=== PATIENT | male | born 1945 | race Caucasian/White ===

== ENCOUNTER 2016-03-27 11:51 | Inpatient (IN) | payer OTHER, BC ==
--- NOTE | 2016-03-27 12:10 | EDPHY ---
H & P Time Seen by Provider: 03/27/16 12:02 HPI/ROS: CHIEF COMPLAINT: Shortness of breath. HISTORY OF PRESENT ILLNESS: The patient is a 70-year-old male with a history of pacemaker and cardiomyopathy who presents from [facility]. He has had shortness of breath for a week and was referred to [facility] by his PCP for an Echocardiogram. During his echo, patient noted to be very tachypneic and complained of shortness of breath. Dr Harvey saw him briefly and verbally reports to me that his echo was not significantly changed from prior studies. Due to patients significant SOB, he was referred to the ED. Patient reports the shortness of breath is worse at night. No chest pain. No palpitations. No peripheral edema. No fever, chills, palpitations, vomiting, diarrhea, urinary complaints, headache, lightheadedness. No cough. He wears 2L oxygen normally at night. His has had him on this constantly over the past week. History limited secondary to patient's clinical condition. Patient very anxious. 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 REVIEW OF SYSTEMS: Limited secondary to patient's clinical condition. Reports a fall 1 week ago with bruising on his right anterior chest and right lateral chest wall. PAST MEDICAL HISTORY: CVA, cardiomyopathy, gout, pacemaker, chronic atrial fibrillation, hypertension. SOCIAL HISTORY: Former smoker. VITAL SIGNS: Reviewed by me, BP 187/169. GENERAL: Very anxious. Well-developed, well-nourished. HEENT: Atraumatic. Eyes: No icterus, no injection. Mouth: moist mucous membranes. No erythema or lesions. Neck: supple with no adenopathy. LUNGS: Tachypneic. Clear to auscultation bilaterally, no wheezes, rhonchi or rales. CARDIAC: Regular rate and rhythm, no rubs, murmurs or gallops. Pacemaker present in left anterior chest wall. ABDOMEN: Soft, nontender, nondistended, bowel sounds normal. BACK: No CVA tenderness. EXTREMITIES: Trace edema in bilateral lower legs. No trauma. Range of motion is normal throughout. NEURO: Alert and oriented, grossly nonfocal. SKIN: Bruises on anterior right upper chest and right chest wall. Warm and dry , no rash. PSYCHIATRIC: Normal mentation, no agitation. Portions of this note were transcribed by a associate medical director. I personally performed a history, physical exam, medical decision making, and confirmed accuracy of information the transcribed note. Smoking Status: Former smoker Constitutional: Initial Vital Signs Temperature (C) 36.3 C 03/27/16 11:58 Heart Rate 85 03/27/16 11:58 Respiratory Rate 18 03/27/16 11:58 Blood Pressure 170/110 H 03/27/16 11:58 O2 Sat (%) 94 03/27/16 11:58 O2 Delivery Mode Nasal Cannula O2 (L/minute) 2 Allergies/Adverse Reactions: No Known Allergies Allergy (Verified 03/27/16 11:55) Home Medications: Medication Instructions Recorded Allopurinol [Allopurinol 300 MG 300 mg PO HS 03/27/16 (RX)] Armodafinil [Nuvigil] 200 mg PO DAILY 03/27/16 Aspirin [Aspirin 81mg (*)] 81 mg PO HS 03/27/16 Cholecalciferol Vit D3 [Vitamin D3 1,000 units PO DAILY 03/27/16 (*)] Escitalopram Oxalate [Lexapro] 10 mg PO DAILY 03/27/16 Lovastatin 20 mg PO HS 03/27/16 Metoprolol Tartrate [Lopressor 50 75 mg PO BID 03/27/16 mg (*)] Nitroglycerin [Nitrostat 0.4 mg 0.4 mg SL Q5M PRN 03/27/16 (*)] amLODIPine BESYLATE [Norvasc 2.5 5 mg PO HS 03/27/16 mg (*)] Medical Decision Making - Diagnostics EKG Interpretation: 12-LEAD EKG: Please see the full report in Trace Master. My interpretation: Afib/flutter and ventricular-paced rhythm. Imaging: X-ray chest was obtained. I viewed the images myself on the PACS system. My interpretation of the images is: cardiomegaly. The radiologist interpretation is pending at this time. I discussed the x-ray findings with the patient. ED Course/Re-evaluation: EKG ordered. An IV was established and labs ordered. Chest x-ray ordered. WBC elevated at 13.65. Troponin elevated at 0.036. BNP elevated at 2340. No prior BNP to compare. No prior troponin levels. No history of CAD. 1309: Consulted with yehuda Johnsist. Will admit to PCU. Small dose of lasix given; patient may actually be dehydrated given elevated H and H, but could also be from noctural hypoxia. Differential Diagnosis: Differential diagnosis for the patient's shortness of breath was considered including but not limited to pulmonary infectious processes, COPD exacerbation, pulmonary emboli, pulmonary edema, congestive heart failure, and cardiac causes. Consult/Admit Bed Type: Dr Ortiz, PCU - Data Points Laboratory Results: Laboratory Results 03/27/16 12:20 03/27/16 12:20 03/27/16 03/27/16 03/27/16 12:20 12:20 12:20 WBC 13.65 10^3/uL H 10^3/uL (3.80-9.50) RBC 6.02 10^6/uL 10^6/uL (4.40-6.38) Hgb 17.7 g/dL H g/dL (13.7-17.5) Hct 52.8 % H % (40.0-51.0) MCV 87.7 fL fL (81.5-99.8) MCH 29.4 pg pg (27.9-34.1) MCHC 33.5 g/dL g/dL (32.4-36.7) RDW 16.9 % H % (11.5-15.2) Plt Count 203 10^3/uL 10^3/uL (150-400) MPV 12.1 fL H fL (8.7-11.7) Neut % (Auto) 72.6 % % (39.3-74.2) Lymph % (Auto) 14.5 % L % (15.0-45.0) Graves % (Auto) 9.2 % % (4.5-13.0) Eos % (Auto) 2.2 % % (0.6-7.6) Baso % (Auto) 0.8 % % (0.3-1.7) Nucleat RBC Rel Count 0.0 % % (0.0-0.2) Absolute Neuts (auto) 9.91 10^3/uL H 10^3/uL (1.70-6.50) Absolute Lymphs (auto) 1.98 10^3/uL 10^3/uL (1.00-3.00) Absolute Monos (auto) 1.26 10^3/uL H 10^3/uL (0.30-0.80) Absolute Eos (auto) 0.30 10^3/uL 10^3/uL (0.03-0.40) Absolute Basos (auto) 0.11 10^3/uL H 10^3/uL (0.02-0.10) Absolute Nucleated RBC 0.00 10^3/uL 10^3/uL (0-0.01) Immature Gran % 0.7 % % (0.0-1.1) Immature Gran # 0.09 10^3/uL 10^3/uL (0.00-0.10) D-Dimer 0.49 ug/mLFEU ug/mLFEU (0.00-0.50) Sodium 144 mEq/L mEq/L (134-144) Potassium 4.8 mEq/L mEq/L (3.5-5.2) Chloride 105 mEq/L mEq/L (97-110) Carbon Dioxide 26 mEq/l mEq/l (22-31) Anion Gap 13 mEq/L mEq/L (8-16) BUN 25 mg/dL H mg/dL (7-23) Creatinine 1.1 mg/dL mg/dL (0.7-1.3) Estimated GFR > 60 Glucose 84 mg/dL mg/dL (70-100) Calcium 9.7 mg/dL mg/dL (8.5-10.4) Troponin I 0.036 ng/mL H ng/mL (0-0.034) NT-Pro-B Natriuret Pep 2340 pg/mL H pg/mL (0-125) Lipase 138.0 IU/L IU/L (23-300) Medications Given: Discontinued Medications Aspirin (Aspirin) 324 mg PO EDNOW ONE Stop: 03/27/16 13:52 Last Admin: 03/27/16 14:05 Dose: 324 mg Furosemide (Lasix Injection) 20 mg IVP EDNOW ONE Stop: 03/27/16 13:05 Last Admin: 03/27/16 13:06 Dose: 20 mg Sodium Chloride (Ns) 500 mls @ 0 mls/hr IV ONCE ONE PRN Reason: As Directed Stop: 03/27/16 13:07 Last Admin: 03/27/16 13:47 Dose: 500 mls Departure - Departure Disposition: [facility] Clinical Impression: Shortness of breath, Elevated troponin, Elevated brain natriuretic peptide (BNP ) level Condition: Fair Report Scribed for: Olinda Escalante Report Scribed by: Clarence Mckeon Date of Report: 03/27/16 Time of Report: 12:10
--- NOTE | 2016-03-27 12:12 | CPEKG ---
Heart Rate: 73 RR Interval: 822 QRSD Interval: 182 QT Interval: 484 QTC Interval: 534 QRS [place]: -79 T Wave [place]: 107 EKG Severity - ABNORMAL ECG - EKG Impression: AFIB/FLUTTER AND VENTRICULAR-PACED RHYTHM Electronically Signed By: Olinda Escalante 27-Mar-2016 21:54:02
[2016-03-27 12:27] LABS: % IMMATURE GRANULYOCYTES 0.7 % (0.0-1.1); ABSOLUTE IMMATURE GRANULOCYTES 0.09 10^3/uL (0.00-0.10); ADD DIFF? NO; ADD MORPH? NO; ADD SCAN? NO; ATYPICAL LYMPHOCYTE FLAG 0 (0-99); FRAGMENT RBC FLAG 0 (0-99); HEMATOCRIT 52.8 % (40.0-51.0); HEMOGLOBIN 17.7 g/dL (13.7-17.5); LEFT SHIFT FLG 0 (0-99); LIPEMIA HEMOLYSIS FLAG 80 (0-99); MEAN CELL HEMOGLOBIN 29.4 pg (27.9-34.1); MEAN CELL HEMOGLOBIN CONCENTR. 33.5 g/dL (32.4-36.7); MEAN CELL VOLUME 87.7 fL (81.5-99.8); MEAN PLATELET VOLUME 12.1 fL (8.7-11.7); PLATELET CLUMPS FLAG 0 (0-99); PLATELET COUNT 203 10^3/uL (150-400); RED BLOOD CELL COUNT 6.02 10^6/uL (4.40-6.38); RED CELL DISTRIBUTION WIDTH 16.9 % (11.5-15.2)
[2016-03-27 12:50] LABS: ANION GAP 13 mEq/L (8-16); CALCIUM 9.7 mg/dL (8.5-10.4); CARBON DIOXIDE 26 mEq/l (22-31); CHLORIDE 105 mEq/L (97-110); CREATININE 1.1 mg/dL (0.7-1.3); GLOMERULAR FILTRATION RATE > 60; GLUCOSE 84 mg/dL (70-100); POTASSIUM 4.8 mEq/L (3.5-5.2); SODIUM 144 mEq/L (134-144)
[2016-03-27 13:02] LABS: TROPONIN I 0.036 ng/mL (0-0.034)
[2016-03-27] MEDS ORDERED: FUROSEMIDE 100 MG/10 ML VIAL IVP ONE (13:04)
[2016-03-27] MEDS ORDERED: NS 500 ML IV ONE (13:06)
[2016-03-27] MEDS ORDERED: ASPIRIN 81 MG CHEWABLE TAB PO ONE (13:51)
--- NOTE | 2016-03-27 14:40 | PDGENHP ---
History and Physical History and Physical: HISTORY AND PHYSICAL ADMISSION NOTE CC: Shortness of breath HISTORY: This patient with a history of cardiomyopathy has been having worsening dyspnea for approximately 10 days. This is with minimal exertion as the patient is quite debilitated from a prior stroke. He does get short of breath sitting in a chair but doing anything like putting socks on makes him much more short of breath. There is no angina or other pains, cough, upper respiratory infection symptoms, fevers, pleuritic discomfort. Neither he nor his is particularly noticed swelling in the legs. He has not had any bleeding. The patient and family do not really remember much detail about his cardiac issues. Imaging he has cardiomyopathy, but they are uncertain as to how severe or if there is a cause that is been determined. ROS: 10 system review reveals no other acute abnormalities PAST MEDICAL HISTORY: Hemorrhagic stroke with persistent deficits Cardiomyopathy Pacemaker placement for bradycardia Atrial fibrillation Hypertension Gout FAMILY MEDICAL HISTORY: No concerning family issues relevant to his current situation SOCIAL HISTORY: lives with his who is here with her at the bedside and very supportive No tobacco or alcohol MEDICATIONS: These have been reconciled by our clinical pharmacist, and include aspirin, calcium jayden, metoprolol, p.r.n. nitroglycerin. I have reviewed the list and ordered appropriate medicines from the list here PHYSICAL EXAMINATION: Vital Signs: Some mild systolic hypertension otherwise normal without fever Er Rn: Paced rhythm on my review Examination: General: alert, oriented, good mentation, relaxed Skin: warm, dry, good color, no rash HEENT: normal Neck: no mass or jvd Resps: relaxed Lungs: clear breath sounds Heart: regular, no murmur Abdomen: soft, nondistended, nontender, +BS, no mass Upper Extremities: normal Lower Extremities: no edema, warm No Bleeding or bruising Neurologic: Speech is somewhat and mumbled which is his baseline, and he has some mild memory deficit which is at baseline per his . Otherwise normal language functions, normal heavy equipment technician, no focal weakness IV site: looks normal LABORATORY DATA: Indeterminate troponin elevation 0.3 BNP elevated at 2300 hemoglobin elevated 17 which is chronic for him RADIOLOGY STUDIES: Chest x-ray done in the ER, my personal review and interpretation of images: Cardiac silhouette appears enlarged and rounded on the left and right have however this is a lordotic view it may be the angle of view that creates this appearance. There is some pulmonary vascular plethora that is mild no effusions 12 lead EKG in the ER, my personal interpretation of the tracing: Paced rhythm with a left bundle branch morphology ASSESSMENT: # acute congestive heart failure developing over the last 10 days, mechanism not yet determined, with history of cardiomyopathy per his # History of coronary artery disease, no angina recently and no acute ischemic EKG appearance # history of hypertension, currently with uncontrolled systolic pressures # for history of AFib currently with ventricular pacing PLANS: -diuresis with IV Lasix -Will get results of the echocardiogram done earlier today -repeat cardiac troponins and EKG -further evaluation and an treatment plans based on results of above -Will review with Cardiology team I have reviewed the patient's case in detail with Dr. Escalante
[2016-03-27] MEDS ORDERED: ONDANSETRON 4 MG/2 ML VIAL IVP PRN (14:48)
[2016-03-27] MEDS ORDERED: ACETAMINOPHEN 325 MG TAB PO PRN (14:48)
[2016-03-27] MEDS ORDERED: NITROGLYCERIN 0.4 MG BTL SL PRN (14:53)
[2016-03-27] MEDS ORDERED: NON-FORMULARY NEW DRUG (Lovastatin [Lovastatin] 20 MG) PO SCH (21:00)
[2016-03-27] MEDS: PRAVASTATIN SODIUM 20 MG TAB PO SCH (22:22)
[2016-03-27] MEDS: ASPIRIN 81 MG CHEWABLE TAB PO SCH (22:22)
[2016-03-27] MEDS: amLODIPine BESYLATE 5 MG TAB PO SCH (22:22)
[2016-03-27] MEDS: METOPROLOL TARTRATE 50 MG TAB PO SCH (22:22)
[2016-03-27] MEDS: ALLOPURINOL 300 MG TAB PO SCH (22:22)
[2016-03-28 05:25] LABS: ALANINE AMINOTRANSFERASE 47 IU/L (21-72); ALBUMIN 3.5 g/dL (3.5-5.0); ALKALINE PHOSPHATASE 72 IU/L (38-126); ANION GAP 9 mEq/L (8-16); ASPARTATE AMINOTRANSFERASE 32 IU/L (17-59); BILIRUBIN,TOTAL 1.9 mg/dL (0.1-1.4); CALCIUM 8.9 mg/dL (8.5-10.4); CARBON DIOXIDE 27 mEq/l (22-31); CHLORIDE 104 mEq/L (97-110); CREATININE 1.1 mg/dL (0.7-1.3); GLOMERULAR FILTRATION RATE > 60; GLUCOSE 81 mg/dL (70-100); MAGNESIUM 1.9 mg/dL (1.6-2.3); POTASSIUM 4.3 mEq/L (3.5-5.2); SODIUM 140 mEq/L (134-144); TOTAL PROTEIN 6.3 g/dL (6.3-8.2)
[2016-03-28 05:28] LABS: TROPONIN I 0.034 ng/mL (0-0.034)
[2016-03-28] MEDS: METOPROLOL TARTRATE 50 MG TAB PO SCH ×2 (08:52→21:51)
[2016-03-28] MEDS: CHOLECALCIFEROL VIT D3 1,000 UNITS TAB PO SCH (08:53)
[2016-03-28] MEDS: ESCITALOPRAM OXALATE 10 MG TAB PO SCH (08:53)
[2016-03-28] MEDS: FUROSEMIDE 40 MG/4 ML VIAL IVP SCH ×2 (08:53→15:08)
[2016-03-28] MEDS: ENOXAPARIN 40 MG/0.4 ML SYR SC SCH (08:53)
[2016-03-28] MEDS: Armodafinil [Nuvigil] 200 MG PO SCH (08:56)
[2016-03-28] MEDS ORDERED: ARMODAFINIL 200 MG PO SCH (09:00)
--- NOTE | 2016-03-28 09:14 | CPEKG ---
Heart Rate: 61 RR Interval: 984 QRSD Interval: 178 QT Interval: 524 QTC Interval: 528 QRS [place]: -78 T Wave [place]: 102 EKG Severity - ABNORMAL ECG - EKG Impression: VENTRICULAR-PACED RHYTHM Electronically Signed By: Bonifacio French 28-Mar-2016 12:17:08
--- NOTE | 2016-03-28 17:19 | HOSPPROG ---
Hospitalist Progress Note Assessment/Plan: DIAGNOSIS: # acute congestive heart failure, Systolic # worsening cardiomyopathy by echocardiogram with ejection fraction of 42% # History of coronary artery disease, no angina recently and no acute ischemic EKG appearance # history of hypertension, currently with uncontrolled systolic pressures # for history of AFib currently with ventricular pacing Some of his worsening heart failure certainly appears to be from uncontrolled systemic hypertension as he does have significant LVH. He certainly could have ischemic disease causing some of his trouble. I have discussed the case in great detail with Dr. Julián Moe today. The patient is minimally active, is not having angina or arrhythmia, and has a history of intracranial hemorrhage stroke. He is responding well to diuretics and could benefit greatly from better blood pressure control with addition of beta-jayden and CHATA inhibitor for afterload reduction and rhythm management. He may do quite well with those therapies alone. He does not appear to be at high risk for infarction in the immediate future on a relative scale. There are certainly would be some risks for him in in terms of going on Plavix therapy with bleeding issues. Dr. Moe and the patient will have further discussions and come to a conclusion about what direction to go at this point but it may be that maximal medical therapy will be the best option and consider angiography only if he presents with acute ischemic events or does not respond well to the medical therapy PLANS: -continue with diuresis, beta blockade, CHATA inhibitor and will increase medication for blood pressure at this time -Follow blood pressure closely here and in the outpatient setting with careful management of that -Await further discussion between Dr. Moe in the patient and his SUBJECTIVE: patient does feel better today and has had good response to diuretics so far, no angina and no palpitations OBJECTIVE Vitals reviewed: still hypertensive, pulse and respirations good no fever personnel monitor: Sinus rhythm on my review Exam: alert oriented skin warm dry color ok resps not labored lungs clear BSs heart regular abd soft nondistended nontender, bowel sounds present limbs warm, still with some edema with pitting at both ankles Laboratory data: Repeat troponin normal, renal function and electrolytes stable Objective: Vital Signs Temp Pulse Resp BP Pulse Ox 36.4 C 60 13 158/88 H 95 03/28/16 16:00 03/28/16 16:00 03/28/16 16:00 03/28/16 16:00 03/28/16 16:00 Laboratory Results 03/28/16 04:06 03/27/16 03/28/16 03/29/16 06:59 06:59 06:59 Intake Total 970 Output Total 375 400 Balance 595 -400 ICD10 Worksheet Patient Problems: Problems Problem Status Onset Elevated brain natriuretic peptide (BNP) level Acute Elevated troponin Acute Shortness of breath Acute
[2016-03-28] MEDS: LISINOPRIL 20 MG TAB PO SCH (17:41)
[2016-03-28] MEDS: PRAVASTATIN SODIUM 20 MG TAB PO SCH (21:50)
[2016-03-28] MEDS: ALLOPURINOL 300 MG TAB PO SCH (21:50)
[2016-03-28] MEDS: amLODIPine BESYLATE 5 MG TAB PO SCH (21:50)
[2016-03-28] MEDS: ASPIRIN 81 MG CHEWABLE TAB PO SCH (21:51)
[2016-03-29 05:09] LABS: ANION GAP 10 mEq/L (8-16); CALCIUM 8.8 mg/dL (8.5-10.4); CARBON DIOXIDE 28 mEq/l (22-31); CHLORIDE 102 mEq/L (97-110); CREATININE 1.1 mg/dL (0.7-1.3); GLOMERULAR FILTRATION RATE > 60; GLUCOSE 83 mg/dL (70-100); POTASSIUM 3.8 mEq/L (3.5-5.2); SODIUM 140 mEq/L (134-144)
[2016-03-29 07:31] VITALS: RESP 20; TEMP 97.6; O2SAT 97
[2016-03-29] MEDS: ENOXAPARIN 40 MG/0.4 ML SYR SC SCH (08:52)
[2016-03-29] MEDS: METOPROLOL TARTRATE 50 MG TAB PO SCH (08:53)
[2016-03-29] MEDS: FUROSEMIDE 40 MG/4 ML VIAL IVP SCH (08:53)
[2016-03-29] MEDS: ESCITALOPRAM OXALATE 10 MG TAB PO SCH (08:53)
[2016-03-29] MEDS: CHOLECALCIFEROL VIT D3 1,000 UNITS TAB PO SCH (08:54)
[2016-03-29] MEDS: LISINOPRIL 20 MG TAB PO SCH (08:54)
[2016-03-29] MEDS: Armodafinil [Nuvigil] 200 MG PO SCH (08:55)
--- NOTE | 2016-03-29 10:06 | GCON ---
[f rep st] CONSULTATION DATE OF CONSULTATION: 03/29/2016 CHIEF COMPLAINT: We have been asked by Dr. Ortiz to evaluate the patient with congestive heart damián almeida. HISTORY OF PRESENT ILLNESS: The patient is a 70-year-old gentleman with a history of atrial fibrill ation, hypertrophic cardiomyopathy, and hemorrhagic cerebrovascular accident, who presents with a co ngestive heart failure exacerbation. The patient was in his usual state of health until approximate ly 2-3 weeks prior to admission, when he began to experience symptoms of increased dyspnea on exerti on. This was followed by restless sleep and waking up short of breath. He was scheduled for an ech ocardiogram at [facility], demonstrating a decline in his left ventricular systolic function down to 47%. The patient was referred to the emergency department for further evaluation and was admitt ed to the hospital and treated with IV diuretics. The patient has noted a significant improvement i n his dyspnea and his walking ability since diuresis. We have been consulted to help in the further management of this patient. The patient does have a previous history of hypertrophic obstructive c ardiomyopathy. He has been managed with beta-jayden therapy for this condition. The patient also has a history of chronic atrial fibrillation. He was previously managed with rate control and antic oagulation strategy. However, his anticoagulation was discontinued following a hemorrhagic stroke. The patient does not have a previous history of coronary artery disease. His last cardiovascular e valuation was in November of 2014, with a normal nuclear stress test. The patient remains mildly act francoise and denies symptoms of chest pain. The patient denies new neurologic events. The patient has b een taking all of his medications. The patient does report there is potential room for improvement in his diet. No evidence of fevers or chills. PAST MEDICAL HISTORY: 1. Hypertrophic obstructive cardiomyopathy. 2. Chronic atrial fibrillation. 3. Hyperlipidemia. 4. Hypertension. 5. Sick sinus syndrome. 6. Hemorrhagic cerebrovascular accident, on therapeutic Coumadin. MEDICATIONS: Please see medicine reconciliation form. ALLERGIES: No known drug allergies. SOCIAL HISTORY: Patient lives with his . He reports limited physical activity since his hemorr hagic CVA. He currently walks with a walker. There is no history of problems with alcohol or tobac co use. FAMILY HISTORY: Noncontributory. REVIEW OF SYSTEMS: A 10-point review of systems is negative, except as noted in HPI. PHYSICAL EXAMINATION: GENERAL: Patient is resting comfortably in a chair at this time. He does no t appear to be in acute distress. VITALS: Temperature is afebrile, pulse is 60, blood pressure 136 /86. SaO2 96% on 2 L nasal cannula. HEENT: Normocephalic, atraumatic. Extraocular muscles intact . NECK: Could not appreciate JVD secondary to plethora. LUNGS: Clear to auscultation bilaterally at this time. CARDIOVASCULAR: Regular rate and rhythm; S1, paradoxical S2, grade 2/6 diastolic de crescendo murmur is appreciated. ABDOMEN: Soft, nontender. Normoactive bowel sounds. EXTREMITIES : Mild bilateral lower extremity edema. NEURO: The patient is awake, alert, and oriented x3. He does have neurologic deficits from his previous hemorrhagic CVA. LABORATORY: White blood cell count 13.65, hemoglobin 17.7, hematocrit 52.8, platelet count 203, sod ium 140, potassium 3.8, chloride 102, CO2 28, BUN 27, creatinine 1.1. EKG demonstrates a paced rhythm. Echocardiogram performed at [facility] demonstrated reduced lef t ventricular systolic function with estimated ejection fraction of 47%. He had moderate aortic ins ufficiency, as well as mild to moderate mitral regurgitation. ASSESSMENT AND PLAN: The patient is a 70-year-old gentleman with: 1. Congestive heart failure. The patient presents with an acute congestive heart failure exacerbat ion. The precipitating factor is not entirely clear at this time. His symptoms have improved signi ficantly with diuretic therapy. We will plan on continuing metoprolol. Will add lisinopril for hyp ertension and cardiomyopathy as outlined below. Continue gentle diuresis with net -1 L over the nex t 24 hours. 2. Cardiomyopathy. The patient presents with a new diagnosis of cardiomyopathy. His ejection frac tion was 55% in November of 2014. Just prior to admission, his ejection fraction decreased to 47%. Valvular heart disease is an unlikely explanation for his cardiomyopathy given he only has moderate valvular disease by echocardiogram. Atrial fibrillation is also an unlikely cause of his cardiomyop athy given that this is longstanding and his cardiomyopathy is relatively recent. Progression of hy pertrophic cardiomyopathy would certainly be a possibility in this particular situation. Coronary a rtery disease is also a possibility; however, patient had a negative nuclear stress test in November of 2014. It is also possible his cardiomyopathy may be related to his pacemaker. He currently has a VVI pacemaker with single ventricular lead. He is pacing approximately 100% of the time and may b enefit from a biventricular pacemaker. Reviewed further risk stratification with the patient and dennis brock, specifically concerning cardiac catheterization to evaluate for obstructive coronary artery di sease. The patient is a poor surgical candidate given his previous hemorrhagic CVA. He is not inte rested in invasive therapy at this time. He would like to pursue a medical management approach and would consider angiogram versus biventricular pacemaker if symptoms were not to be controlled with m edical therapy. We will plan on continuing metoprolol as outlined above. Will add lisinopril to he lp in blood pressure management, as well as his cardiomyopathy. Consider outpatient diuretic therap y as needed. 3. Hypertension. Patient is moderately hypertensive on this admission. We will plan on initiating lisinopril 20 mg daily for his cardiomyopathy and hypertension management. Would consider disconti nuation of amlodipine if BP is well controlled. 4. Cerebrovascular accident. Patient has a history of hemorrhagic cerebrovascular accident, on Cou madin therapy. He denies new neurologic complaints. Continue to follow. 5. Atrial fibrillation. Patient has chronic atrial fibrillation. He has been managed with rate co ntrol and anticoagulation strategy. He is currently not on Coumadin therapy given previous hemorrha gic CVA. /[id number]/MODL
--- NOTE | 2016-03-29 10:11 | PDDCSUM ---
Discharge Summary Discharge Summary: DISCHARGE SUMMARY NOTE DISCHARGE DIAGNOSES: # acute systolic congestive heart failure # history of hemorrhagic stroke CONSULTANTS: Dr. Julián Moe cardiology HOSPITAL COURSE SUMMARY: This patient with some history of heart disease and hypertension presented to the Cardiology Clinic with shortness of breath was found to be in heart failure. An echocardiogram done there showed a decreased ejection fraction at 42% no significant valvular abnormalities. There were no wall motion abnormalities but he had significant LVH. On presentation to the hospital he had ongoing uncontrolled hypertension. The patient was given Lasix intravenously and responded quite well to that and over the past 2 days has had good diuresis and feels much better nearly back to baseline. He is close to euvolemic at this time with a little edema left. He has had no arrhythmia, nothing to suggest ischemia per se. Beta-jayden was being used at home at a good dose. Lisinopril was added hear any tolerated that very well. Had Dr. Julián Moe who knows the patient well see him. We reviewed the options of evaluating for coronary disease. As he had no wall motion abnormalities and no evidence of infarct or ischemia at this time he was felt to be at low risk for infarct. As he has a history of hemorrhagic stroke, he is at higher risk of bleeding on platelet inhibition medicines so that placing drug-eluting stents has higher risk for him. After discussion with the patient and his we elected to recommend maximal medical therapy at this time, and follow closely for his response. He has ongoing heart failure or other problems we can consider doing angiography and stenting as needed, or consider changing his pacemaker to a Bi V pacemaker. I had long discussion with the patient his about low-salt diet and the impact that will have as well. We reviewed that his medications are important if he has any side effects or problems with the medicines he should discuss these promptly with Dr. Moe MEDICATION CHANGES: Addition of Lasix 20 mg daily and lisinopril 20 mg daily FOLLOW-UP PLAN: With Dr. Moe in 2 weeks Greater than 35 minutes bedside and care coordination time today
[2016-03-29 11:09] VITALS: BP 124/75; PULSE 60
== END 2016-03-29 11:30 | disposition home or self-care (01) | DRG 293 ==
LOC: F2W 14:41
PROVIDERS: ADMIT Internal Medicine; ATTEND Internal Medicine
DX: I11.0 Hypertensive heart disease with heart failure (principal); I50.21 Acute systolic (congestive) heart failure; I42.1 Obstructive hypertrophic cardiomyopathy; I48.2 Chronic atrial fibrillation; Z95.0 Presence of cardiac pacemaker; Z99.81 Dependence on supplemental oxygen; I25.10 Atherosclerotic heart disease of native coronary artery without angina pectoris; I69.118 Other symptoms and signs involving cognitive functions following nontraumatic intracerebral hemorrhage; I69 Sequelae of cerebrovascular disease; M10.9 Gout, unspecified
CPT/HCPCS: 96374; 97161-GP; 97165-GO; G8978-GP-CI; G8979-GP-CI; G8980-GP-CI; G8987-GO-CI; G8988-GO-CI; G8989-GO-CI; J1650

== ENCOUNTER → 2016-03-27 | Outpatient (CLI) | payer OTHER, BC | LOC: BHFA 11:30 | PROVIDERS: ATTEND Internal Medicine Cardiovascular Disease | DX: R06.00 Dyspnea, unspecified (principal); I42.9 Cardiomyopathy, unspecified ==

== ENCOUNTER → 2017-04-01 | Outpatient (CLI) | payer OTHER, BC | LOC: BHCLAF 10:00 | PROVIDERS: ATTEND Internal Medicine Cardiovascular Disease | DX: I50.9 Heart failure, unspecified (principal); I42.9 Cardiomyopathy, unspecified | CPT/HCPCS: 93306-PO ==

== ENCOUNTER → 2017-08-15 | Outpatient (CLI) | payer OTHER, BC | DX: I42.2 Other hypertrophic cardiomyopathy (principal); R53.83 Other fatigue; R06.02 Shortness of breath ==

== ENCOUNTER → 2018-03-21 | Outpatient (CLI) | payer OTHER, BC | LOC: BHCLAF 11:30 | PROVIDERS: ATTEND Internal Medicine Cardiovascular Disease | DX: I42.9 Cardiomyopathy, unspecified (principal); I35.1 Nonrheumatic aortic (valve) insufficiency; I50.9 Heart failure, unspecified | CPT/HCPCS: 93306-PO ==